=== PATIENT | female | born 1955 | race Caucasian/White ===

== ENCOUNTER 2016-11-10 10:05 | Day surgery (SDC) | payer OTHER ==
[2016-11-10] MEDS ORDERED: DIAZEPAM 5 MG TAB PO ONE (10:10)
[2016-11-10] MEDS ORDERED: ASPIRIN EC 325 MG TAB PO ONE ×2 (10:10→10:35)
[2016-11-10] MEDS ORDERED: FAMOTIDINE 20 MG TAB PO ONE (10:10)
[2016-11-10] MEDS ORDERED: NS 1,000 ML IV ONE (10:10)
[2016-11-10] MEDS ORDERED: diphenhydrAMINE 25 MG CAP PO ONE ×2 (10:10→10:34)
--- NOTE | 2016-11-10 10:29 | CPEKG ---
Heart Rate: 93 RR Interval: 645 P-R Interval: 152 QRSD Interval: 70 QT Interval: 352 QTC Interval: 438 P Bronson: 31 QRS Bronson: -18 T Wave Bronson: 50 EKG Severity - OTHERWISE NORMAL ECG - EKG Impression: SINUS RHYTHM EKG Impression: BORDERLINE LEFT AXIS DEVIATION Electronically Signed By: Meng King 10-Nov-2016 14:46:09
[2016-11-10] MEDS ORDERED: FAMOTIDINE 20 MG TAB ONE (10:34)
[2016-11-10] MEDS ORDERED: DIAZEPAM 5 MG TAB ONE (10:35)
[2016-11-10 10:42] LABS: ADD DIFF? NO; ADD MORPH? NO; ADD SCAN? NO; ATYPICAL LYMPHOCYTE FLAG 20 (0-99); FRAGMENT RBC FLAG 0 (0-99); HEMATOCRIT 44.3 % (38.0-47.0); HEMOGLOBIN 14.9 g/dL (12.6-16.3); LEFT SHIFT FLG 0 (0-99); LIPEMIA HEMOLYSIS FLAG 80 (0-99); MEAN CELL HEMOGLOBIN 30.8 pg (27.9-34.1); MEAN CELL HEMOGLOBIN CONCENTR. 33.6 g/dL (32.4-36.7); MEAN CELL VOLUME 91.7 fL (81.5-99.8); MEAN PLATELET VOLUME 9.5 fL (8.7-11.7); PLATELET CLUMPS FLAG 0 (0-99); PLATELET COUNT 177 10^3/uL (150-400); RED BLOOD CELL COUNT 4.83 10^6/uL (4.18-5.33); RED CELL DISTRIBUTION WIDTH 12.2 % (11.5-15.2)
[2016-11-10 10:51] LABS: INR 0.89 (0.83-1.16); PROTIME(PATIENT) 11.9 SEC (12.0-15.0)
[2016-11-10 11:10] LABS: TROPONIN I < 0.012 ng/mL (0-0.034)
[2016-11-10 11:14] LABS: ANION GAP 13 mEq/L (8-16); CALCIUM 9.5 mg/dL (8.5-10.4); CARBON DIOXIDE 23 mEq/l (22-31); CHLORIDE 107 mEq/L (97-110); CHOLESTEROL 219 mg/dL (140-220); CHOLESTEROL/HDL RATIO 5.48 RATIO (1.00-4.44); CREATININE 0.8 mg/dL (0.6-1.0); GLOMERULAR FILTRATION RATE > 60; GLUCOSE 91 mg/dL (70-100); HIGH DENSITY LIPOPROTEIN 40 mg/dL (40-85); LDL/HDL RATIO 3.18 RATIO (1.00-3.22); LOW DENSITY LIPOPROTEIN 127 mg/dL (80-100); NON-HIGH DENSITY LIPOPROTEIN 179 mg/dL (90-129); POTASSIUM 4.6 mEq/L (3.5-5.2); SODIUM 143 mEq/L (134-144); TRIGLYCERIDE 264 mg/dL (35-135); VERY LOW DENSITY LIPOPROTEINS 52 mg/dL (8-25)
[2016-11-10] MEDS ORDERED: MIDAZOLAM 2 MG/2 ML VIAL ONE (12:44)
[2016-11-10] MEDS ORDERED: fentaNYL 100 MCG/2 ML INJ ONE (12:44)
[2016-11-10] MEDS ORDERED: IOPAMIDOL (ISOVUE-370) 150 ML BTL IV ONE (12:44)
[2016-11-10] MEDS ORDERED: LIDOCAINE 1% 30 ML SDV ONE (12:44)
--- NOTE | 2016-11-10 13:49 | PDDXCAT ---
Diagnostic Cath Note - . Date: 11/10/16 Data Entry Processor: Juan Indication: CCC Class III and IV angina on medical treatment - Procedure Access: right groin Procedure: left heart catheterization, coronary angiography, left ventriculogram - Materials Left Heart Cath size: 6F Left Heart Cath materials: standard multipack (JL4, JR4, pigtail) - Findings-Left Heart Catheterization LM: Normal. LAD: Tortuous. 2 smal diagonal branches. Normal. LCX: Single large multibranching OM1. Tortuous. Normal. RCA: Dominant. Normal. EDP: 8 mmHg. LVEF: >70%. Wall motion: Normal. Complications: None. Estimated blood loss: <50ml Closure method: Angioseal Assessment: Normal coronary arteries. Normal EF. Non-cardiac CP. Plan: Eval for alternate CP etiologies.
== END 2016-11-10 17:35 | disposition home or self-care (01) ==
LOC: FCATH 10:05
PROVIDERS: ATTEND Internal Medicine Cardiovascular Disease
PROC: 4A023N7 Measurement of Cardiac Sampling and Pressure, Left Heart, Percutaneous Approach (ICD-10-PCS; principal; 2016-11-10)
PROC: B2151ZZ Fluoroscopy of Left Heart using Low Osmolar Contrast (ICD-10-PCS; 2016-11-10)
PROC: B2111ZZ Fluoroscopy of Multiple Coronary Arteries using Low Osmolar Contrast (ICD-10-PCS; 2016-11-10)
DX: R07.9 Chest pain, unspecified (principal); R53.83 Other fatigue; G43.909 Migraine, unspecified, not intractable, without status migrainosus; J45.909 Unspecified asthma, uncomplicated; G47.31 Primary central sleep apnea; K21.9 Gastro-esophageal reflux disease without esophagitis; E03.9 Hypothyroidism, unspecified; M06.9 Rheumatoid arthritis, unspecified; M81.0 Age-related osteoporosis without current pathological fracture
CPT/HCPCS: C1760; J1644; J2250; J3010; Q9967

== ENCOUNTER 2016-12-25 11:00 | Emergency (ER) | payer OTHER ==
--- NOTE | 2016-12-25 12:40 | EDPHY ---
General - History Smoking Status: Never smoked Narrative: CHIEF COMPLAINT: Headache, dizziness HISTORY OF PRESENT ILLNESS: Patient complains of dizziness that has been present for over a month. It is reported as lightheadedness and not as vertiginous or spinning sensation and dizziness. It has worsened over the past 2 days. Also has a headache that started this morning. It was gradual onset. The headache was in the left hemisphere 1st but now the top of the head. It is mild to moderate. It actually is improving at time of my examination. It was not a sudden onset or thunderclap. It is not the worst headache of her life. She has a history of migraines the pain felt a little different than her previous. She does have photophobia. She has no nausea or vomiting. No chest pain or shortness of breath. No abdominal or urinary complaints. Symptoms are significantly improved at rest. They worsen with ambulation. 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 Had a recent hospitalization in November here and had a Cardiology follow-up appointment today. They scheduled her the wrong office, that she was going to take a bus over to location of the appointment with the dizziness acutely worsened. REVIEW OF SYSTEMS: Ten systems reviewed and are negative unless otherwise noted in the HPI PERTINENT MEDICAL HISTORY: EXAMINATION General Appearance: Alert, no distress Head: normocephalic, atraumatic. No outward signs of trauma. Eyes: Pupils equal and round, no conjunctival pallor or injection. EOMs intact. No nystagmus. ENT, Mouth: Mucous membranes moist. Uvula midline. No erythema edema. Neck: Normal inspection, supple, non-tender. No meningismus. No nuchal rigidity Respiratory: Lungs are clear to auscultation. No wheezing, rhonchi or crackles. Cardiovascular: Regular rate and rhythm. No murmur. Pulses intact distally. Gastrointestinal: Abdomen is soft and nontender. No CVA tenderness. No tympany rigidity. Neurological: A&O, nonfocal, normal gait. Strength is symmetric in all limbs. No facial droop. Skin: Warm and dry, no rash Extremities: Nontender, no pedal edema Psychiatric: Mood and affect normal DIFFERENTIAL DIAGNOSES: Including but not limited to migraine, dizziness, near-syncope, lightheadedness , vertigo, electrolyte disturbance MDM: 12:35 p.m. Ongoing dizziness with headache. The patient has a history of dizziness for the past 2 months. She also has history of migraines. We will attempt Reglan and Benadryl and verify her electrolyte status. Her complaints are not consistent with subdural hematoma or minute and jaundice, nor is her examination. She is resting comfortably in no acute distress. 1:18 p.m. Laboratory studies were ordered nearly an hour ago but are not yet been run. Will contact laboratory find out why. She remains awake and alert in no acute distress. No focal deficits. 1:50 p.m. Laboratory studies are all within normal limits. She is feeling much better upon reexamination at this time. EKG is unremarkable. Vital signs remained stable. Suspect this is likely her migraine versus chronic dizziness. There is no abnormality that would warrant further imaging or inpatient stay at this time. She is ambulating without assistance and without difficulty. I will discharge her home and recommend that she follow up with primary care physician casing finisher and stuffer. She is to return to the ER for worsening symptoms. She is comfortable this plan and discharged home ambulatory and stable condition SUPERVISION: This patient was independently evaluated without direct examination by the attending physician. Case was discussed with attending physician. (Hardeep Mercado ) Discussion: 12-lead EKG interpreted by me; official reading is in trace master. My interpretation is sinus rhythm rate 66, normal intervals. Normal EKG. And secondary supervising physician but did not personally evaluate the patient. (Titus Flores) - Objective Vital Signs: Initial Vital Signs Temperature (C) 36.7 C 12/25/16 11:05 Heart Rate 78 12/25/16 11:05 Respiratory Rate 18 12/25/16 11:05 Blood Pressure 161/100 H 12/25/16 11:05 O2 Sat (%) 95 12/25/16 11:05 O2 Delivery Mode Room Air Allergies/Adverse Reactions: codeine [Codeine] Allergy (Verified 12/25/16 11:12) Home Medications: Medication Instructions Recorded Budesonide 180 Mcg INH [Pulmicort 2 puffs IH DAILY 01/04/12 180Mcg Flexhaler (RX)] Cholecalciferol 2400unit/Ml 15 drops PO .2X/WK 01/04/12 Folic Acid [Folic Acid 1 MG (RX)] 5 mg PO DAILY 04/05/12 Lubricant Eye Drop 1 drop EACHEYE Q2 01/04/12 Methotrexate Sodium [Rheumatrex 15 mg PO TU 01/04/12 2.5 mg (RX)] Probiotic Capsule 1 cap PO DAILY 01/04/12 Topiramate [Topamax (RX)] 25 mg PO DAILY PRN 01/04/12 Viactiv 500/500/40 1 ea PO TID 01/04/12 cycloSPORINE 0.05% [Restasis (RX)] 1 each EACHEYE BID 01/04/12 Hydrocodone Bit/Acetaminophen 1 tab PO Q4 PRN 01/09/12 [Vicodin 5/500] Pharmacy Completed 01/09/2012 01/09/12 ACTEMRA 400 mg IV 11/10/16 Dexilant 60 mg PO DAILY 11/10/16 Linzess 145 mcg PO DAILY 11/10/16 Pulmicort 180Mcg Flexhaler (*) 2 puffs IJ DAILY 11/10/16 Synthroid 88 mcg (*) 88 mcg PO DAILY 11/10/16 Vitamin B12 1000MCG/ML (*) 1,000 mcg 11/10/16 Laboratory Results: Laboratory Results 12/25/16 12:23 12/25/16 12:23 12/25/16 12/25/16 12/25/16 12:23 12:23 12:23 WBC 4.94 10^3/uL 10^3/uL (3.80-9.50) RBC 5.09 10^6/uL 10^6/uL (4.18-5.33) Hgb 15.1 g/dL g/dL (12.6-16.3) Hct 46.4 % % (38.0-47.0) MCV 91.2 fL fL (81.5-99.8) MCH 29.7 pg pg (27.9-34.1) MCHC 32.5 g/dL g/dL (32.4-36.7) RDW 12.5 % % (11.5-15.2) Plt Count 207 10^3/uL 10^3/uL (150-400) MPV 9.5 fL fL (8.7-11.7) Neut % (Auto) 47.6 % % (39.3-74.2) Lymph % (Auto) 37.4 % % (15.0-45.0) [place] % (Auto) 7.5 % % (4.5-13.0) Eos % (Auto) 6.7 % % (0.6-7.6) Baso % (Auto) 0.6 % % (0.3-1.7) Nucleat RBC Rel Count 0.0 % % (0.0-0.2) Absolute Neuts (auto) 2.35 10^3/uL 10^3/uL (1.70-6.50) Absolute Lymphs (auto) 1.85 10^3/uL 10^3/uL (1.00-3.00) Absolute Monos (auto) 0.37 10^3/uL 10^3/uL (0.30-0.80) Absolute Eos (auto) 0.33 10^3/uL 10^3/uL (0.03-0.40) Absolute Basos (auto) 0.03 10^3/uL 10^3/uL (0.02-0.10) Absolute Nucleated RBC 0.00 10^3/uL 10^3/uL (0-0.01) Immature Gran % 0.2 % % (0.0-1.1) Immature Gran # 0.01 10^3/uL 10^3/uL (0.00-0.10) PT 12.5 SEC SEC (12.0-15.0) INR 0.94 (0.83-1.16) APTT 26.6 SEC SEC (23.0-38.0) Sodium 142 mEq/L mEq/L (134-144) Potassium 4.1 mEq/L mEq/L (3.5-5.2) Chloride 104 mEq/L mEq/L (97-110) Carbon Dioxide 26 mEq/l mEq/l (22-31) Anion Gap 12 mEq/L mEq/L (8-16) BUN 18 mg/dL mg/dL (7-23) Creatinine 0.8 mg/dL mg/dL (0.6-1.0) Estimated GFR > 60 Glucose 90 mg/dL mg/dL (70-100) Calcium 9.9 mg/dL mg/dL (8.5-10.4) Total Bilirubin 1.2 mg/dL mg/dL (0.1-1.4) Conjugated Bilirubin 0.5 mg/dL mg/dL (0.0-0.5) Unconjugated Bilirubin 0.7 mg/dL mg/dL (0.0-1.1) AST 42 IU/L IU/L (14-46) ALT 48 IU/L IU/L (9-52) Alkaline Phosphatase 89 IU/L IU/L (38-126) Troponin I < 0.012 ng/mL ng/mL (0-0.034) Total Protein 8.0 g/dL g/dL (6.3-8.2) Albumin 4.8 g/dL g/dL (3.5-5.0) Lipase 144.0 IU/L IU/L (23-300) Medications Given: Discontinued Medications Diphenhydramine HCl (Benadryl Injection) 25 mg IVP EDNOW ONE Stop: 12/25/16 12:26 Last Admin: 12/25/16 12:45 Dose: 25 mg Sodium Chloride (Ns) 500 mls @ 0 mls/hr IV ONCE ONE PRN Reason: As Directed Stop: 12/25/16 12:24 Last Admin: 12/25/16 12:44 Dose: 500 mls Metoclopramide HCl (Reglan Injection) 10 mg IVP EDNOW ONE Stop: 12/25/16 12:26 Last Admin: 12/25/16 12:45 Dose: 10 mg Departure - Departure Disposition: Home, Routine, Self-Care Clinical Impression: Dizzy Headache Qualifiers: Headache type: unspecified Headache chronicity pattern: acute headache Intractability: not intractable Qualified Code(s): R51 - Headache Condition: Good Instructions: Migraine Headache (ED), Lightheadedness (ED), Dizziness (ED) Additional Instructions: Follow-up with primary care physician and casing finisher and stuffer. Return to ER for worsening symptoms, loss of consciousness or sudden worsening of headache Referrals: Leonard Steele MD [Primary Care Provider] - As per Instructions
--- NOTE | 2016-12-25 12:42 | CPEKG ---
Heart Rate: 66 RR Interval: 909 P-R Interval: 156 QRSD Interval: 76 QT Interval: 412 QTC Interval: 432 P Wray: 43 QRS Wray: 10 T Wave Wray: 51 EKG Severity - NORMAL ECG - EKG Impression: SINUS RHYTHM Electronically Signed By: Titus Flores 25-Dec-2016 13:02:09
[2016-12-25] MEDS: NS 500 ML IV ONE (12:44)
[2016-12-25] MEDS: METOCLOPRAMIDE 10 MG/2 ML VIAL IVP ONE (12:45)
[2016-12-25 12:49] VITALS: RESP 16; TEMP 98.4; O2SAT 96
[2016-12-25 13:29] LABS: % IMMATURE GRANULYOCYTES 0.2 % (0.0-1.1); ABSOLUTE IMMATURE GRANULOCYTES 0.01 10^3/uL (0.00-0.10); ADD DIFF? NO; ADD MORPH? NO; ADD SCAN? NO; ATYPICAL LYMPHOCYTE FLAG 80 (0-99); FRAGMENT RBC FLAG 0 (0-99); HEMATOCRIT 46.4 % (38.0-47.0); HEMOGLOBIN 15.1 g/dL (12.6-16.3); LEFT SHIFT FLG 0 (0-99); LIPEMIA HEMOLYSIS FLAG 80 (0-99); MEAN CELL HEMOGLOBIN 29.7 pg (27.9-34.1); MEAN CELL HEMOGLOBIN CONCENTR. 32.5 g/dL (32.4-36.7); MEAN CELL VOLUME 91.2 fL (81.5-99.8); MEAN PLATELET VOLUME 9.5 fL (8.7-11.7); PLATELET CLUMPS FLAG 30 (0-99); PLATELET COUNT 207 10^3/uL (150-400); RED BLOOD CELL COUNT 5.09 10^6/uL (4.18-5.33); RED CELL DISTRIBUTION WIDTH 12.5 % (11.5-15.2)
[2016-12-25 13:35] LABS: ALANINE AMINOTRANSFERASE 48 IU/L (9-52); ALBUMIN 4.8 g/dL (3.5-5.0); ALKALINE PHOSPHATASE 89 IU/L (38-126); ANION GAP 12 mEq/L (8-16); ASPARTATE AMINOTRANSFERASE 42 IU/L (14-46); BILIRUBIN,TOTAL 1.2 mg/dL (0.1-1.4); BILIRUBIN-CONJUGATED 0.5 mg/dL (0.0-0.5); BILIRUBIN-UNCONJUGATED 0.7 mg/dL (0.0-1.1); CALCIUM 9.9 mg/dL (8.5-10.4); CARBON DIOXIDE 26 mEq/l (22-31); CHLORIDE 104 mEq/L (97-110); CREATININE 0.8 mg/dL (0.6-1.0); GLOMERULAR FILTRATION RATE > 60; GLUCOSE 90 mg/dL (70-100); POTASSIUM 4.1 mEq/L (3.5-5.2); SODIUM 142 mEq/L (134-144)
[2016-12-25 13:39] LABS: APTT 26.6 SEC (23.0-38.0); INR 0.94 (0.83-1.16); PROTIME(PATIENT) 12.5 SEC (12.0-15.0)
[2016-12-25 13:46] LABS: TROPONIN I < 0.012 ng/mL (0-0.034)
[2016-12-25 14:04] VITALS: BP 128/78; PULSE 77
== END 2016-12-25 14:03 | disposition home or self-care (01) ==
DX: R51 Headache (principal); R42 Dizziness and giddiness
CPT/HCPCS: 93005; 96374; 96375; 99284; J1200; J2765

== ENCOUNTER → 2016-12-29 | Outpatient (CLI) | payer OTHER | LOC: FIMAGING 13:58 | DX: Z12.31 Encounter for screening mammogram for malignant neoplasm of breast (principal) | CPT/HCPCS: G0202 ==

== ENCOUNTER → 2017-01-11 | Outpatient (CLI) | payer OTHER | LOC: BHFA 13:15 | PROVIDERS: ATTEND Internal Medicine Cardiovascular Disease | DX: R07.9 Chest pain, unspecified (principal); R06.00 Dyspnea, unspecified; I10 Essential (primary) hypertension ==

== ENCOUNTER → 2017-05-18 | Outpatient (CLI) | payer OTHER ==
[~2017-05-18] MED LIST: IOPAMIDOL (ISOVUE 370) 100 ML BTL IV ONE
== END ==
LOC: FIMAGING 15:31
PROVIDERS: ATTEND Internal Medicine
DX: R51 Headache (principal); H53.122 Transient visual loss, left eye; R20.2 Paresthesia of skin; R29.818 Other symptoms and signs involving the nervous system
CPT/HCPCS: 70496; 70498; 70551; Q9967

== ENCOUNTER 2017-11-18 17:51 | Emergency (ER) | payer OTHER ==
--- NOTE | 2017-11-18 18:07 | EDPHY ---
H & P Stated Complaint: COUGH, WEAKNESS, FEVER Time Seen by Provider: 11/18/17 18:06 - Personal History Current Tetanus/Diphtheria Vaccine: Yes Tetanus Vaccine Date: PROB OVER 10 YRS - Medical/Surgical History Hx Asthma: Yes Hx Chronic Respiratory Disease: No Hx Diabetes: No Hx Cardiac Disease: No Hx Renal Disease: No Hx Cirrhosis: No Hx Alcoholism: No Hx HIV/AIDS: No Hx Splenectomy or Spleen Trauma: No Other PMH: RA. HTN. TBI ~ 18 yrs ago. migraines - Social History Smoking Status: Never smoked Constitutional: Initial Vital Signs Temperature (C) 37.4 C 11/18/17 18:04 Heart Rate 70 11/18/17 18:04 Respiratory Rate 16 11/18/17 18:04 Blood Pressure 137/60 H 11/18/17 18:04 O2 Sat (%) 90 L 11/18/17 18:04 O2 Delivery Mode Room Air Allergies/Adverse Reactions: codeine [Codeine] Allergy (Verified 12/25/16 11:12) rituximab [From Rituxan] Allergy (Verified 11/18/17 18:04) Home Medications: Medication Instructions Recorded Carvedilol 11/18/17 Prednisone 11/18/17 Pulmicort 11/18/17 Synthroid 11/18/17 Xeljanz 11/18/17 Medical Decision Making - Diagnostics Imaging: I viewed and interpreted images myself ED Course/Re-evaluation: CHIEF COMPLAINT: Shortness of breath, cough HISTORY OF PRESENT ILLNESS: The patient is a 62 y/o with a history of rheumatoid arthritis complaining of a cough and shortness of breath for several days. She initially had chills and a fever, which spiked to 100.4 degrees. She uses an inhaler daily for controlled asthma. She also takes Prednisone for her RA flares, which she is not taking now. No chest pain, abdominal pain, urinary or bowel complaints, numbness, paresthesias. REVIEW OF SYSTEMS: A 10 point review of systems was performed and is negative with the exception of the elements mentioned in the history of present illness. PHYSICAL EXAM: HR, BP, O2 Sat, RR. Temp noted General Appearance: Alert, well hydrated, appropriate, and non-toxic appearing. Head: Atraumatic without scalp tenderness or obvious injury Eyes: Pupils equal, round, reactive to light and accommodation, EOMI, no trauma , no injection. Ears: Clear bilaterally, no perforation, normal landmarks Nose: Atraumatic, no rhinorrhea, clear. Throat: Mucus membranes moist. Neck: Supple, nontender, no lymphadenopathy. Respiratory: Bilateral wheezes with prolonged expiratory phase, and coarse rhonchi. No retractions, no distress, and no accessory muscle use. Cardiovascular: Regular rate and rhythm, no murmurs, rubs, or gallops. Bilateral carotid, radial, dorsalis pedis, and posterior tibial pulses intact. Good capillary refill all extremities. Gastrointestinal: Abdomen is soft, nontender, non-distended, no masses, no rebound, no guarding, no peritoneal signs. Musculoskeletal: Normal active ROM of all extremities, atraumatic. Neurological: Alert, appropriate, and interactive. Non-focal neuro Skin: No rashes, good turgor, no nodules on palpation. Past medical history: Rheumatoid arthritis, asthma, hypertension, TBI, migraines Past surgical history: Denies Family history: Denies Social history: Lives in [place], single DIAGNOSTICS/PROCEDURES/CRITICAL CARE TIME: Chest X-ray: Bronchitis, no pneumonia DIFFERENTIAL DIAGNOSIS: The differential diagnosis for the patient's shortness of breath and hypoxemia included but was not limited to bronchitis, RSV, pneumonia, myocardial infarction, acute mountain sickness, high altitude pulmonary edema, congestive heart failure, and pulmonary embolus. MEDICAL DECISION MAKING: The patient is a 62 y/o female taking oral and puffing steroids, presenting with dyspnea for several days. On exam she has bilateral wheezes with a prolonged expiratory phase and coarse rhonchi. Chest x-ray ordered. DuoNeb administered. 1828: Patient's chest x-ray reveals bronchitis but no pneumonia. Influenza swab ordered. 1923: Reassessed patient and discussed imaging findings. She will be prescribed Decadron as she is not currently taking Prednisone. Return precautions provided ; patient is comfortable with this plan. 1932: Patient is positive for RSV. - Data Points Laboratory Results: 11/18/17 18:34 Nasal Influenza A PCR NEGATIVE FOR FLU A (NEGATIVE) Nasal Influenza B PCR NEGATIVE FOR FLU B (NEGATIVE) RSV (PCR) RSV DETECTED H (NEGATIVE) Medications Given: Discontinued Medications Albuterol/Ipratropium (Duoneb) 3 ml IH EDNOW ONE Stop: 11/18/17 18:11 Last Admin: 11/18/17 18:26 Dose: 3 ml Departure - Departure Disposition: Home, Routine, Self-Care Clinical Impression: Bronchitis Condition: Good Instructions: Acute Bronchitis (ED) Additional Instructions: 1. Follow up with your primary care physician within 72 hours for reevaluation. 2. Drink plenty of fluids. 3. Return to the emergency department immediately for high fever, severe headache or neck pain, difficulty breathing, abdominal pain, rash or other worsening of condition. 4. Take Decadron as prescribed. 5. You can call the ED for your flu results later tonight or tomorrow. Referrals: Leonard Steele MD [Primary Care Provider] - As per Instructions Report Scribed for: Wyatt Sanon Report Scribed by: Freida Conway Date of Report: 11/18/17 Time of Report: 18:08
[2017-11-18] MEDS: IPRATROPIUM/ALBUTEROL 3 ML DEYVIAL IH ONE ×2 (18:21→18:26)
[2017-11-18] MEDS ORDERED: IPRATROPIUM/ALBUTEROL 3 ML DEYVIAL ONE (18:24)
[2017-11-18] MEDS ORDERED: DEXAMETHASONE 10 MG/ML VIAL PO ONE (19:27)
[2017-11-18 19:49] VITALS: BP 148/89; PULSE 65; RESP 18; TEMP 98.1; O2SAT 92
== END 2017-11-18 19:54 | disposition home or self-care (01) ==
DX: J40 Bronchitis, not specified as acute or chronic (principal); I10 Essential (primary) hypertension
CPT/HCPCS: 71046; 99284; J1100

== ENCOUNTER → 2018-02-07 | Outpatient (CLI) | payer OTHER | LOC: FIMAGING 10:16 | PROVIDERS: ATTEND Internal Medicine | DX: Z12.31 Encounter for screening mammogram for malignant neoplasm of breast (principal) ==